=== PATIENT | male | born 1975 | race Caucasian/White ===

== ENCOUNTER 2021-11-30 14:08 | Outpatient (CLI) | payer BC, SELFPAY ==
--- NOTE | ~2021-11-30 | XR_ITS ---
EXAMINATION: XR chest 2V DATE: 11/30/2021 14:31 INDICATION: Cough, unspecified TECHNIQUE: PA and lateral views of the chest are obtained. COMPARISON: 04/13/2017 FINDINGS: There are minimal airspace opacities of the left lung base. There is no pleural effusion or pneumothorax. The cardiomediastinal silhouette is normal. There is moderate thoracic spondylosis. IMPRESSION: 1. Left basilar airspace opacities, consistent with atelectasis versus pneumonia. Reviewed, dictated and finalized at location B. REPA[employer] [employer]ENCH IMPRESSION: 1. Left basilar airspace opacities, consistent with atelectasis versus pneumoni a.
== END 2021-11-30 14:09 | disposition home or self-care (01) ==
LOC: ANHIMG 14:19
PROVIDERS: PCP Family Medicine; Visit Provider Family Medicine
DX: R05.3 Chronic cough (principal)
CPT/HCPCS: 71046

== ENCOUNTER 2023-03-17 08:41 | Outpatient (CLI) | payer BC, SELFPAY ==
[2023-03-17 18:36] LABS: Basophils Percent Auto 0.5 % (0.2-1.2); Eosinophils Absolute Auto 0.1 K/mm3 (0-0.3); Eosinophils Percent Auto 1.6 % (0-4.4); Hematocrit 44.6 % (42.0-52.0); Hemoglobin 14.6 g/dL (14.0-18.0); Immature Granulocyte Absolute 0.03 K/mm3 (0.00-0.031); Immature Granulocyte Percent A 0.5 % (0-0.5); Lymphocytes Absolute Auto 1.54 K/mm3 (0.9-3.2); Lymphocytes Percent Auto 24.8 % (18.3-44.2); Mean Corpuscular HGB Conc 32.7 g/dl (32-36); Mean Corpuscular Hemoglobin 27.5 pg (26-34); Mean Platelet Volume 9.2 fl (7.4-10.4); Monocytes Absolute Auto 0.6 K/mm3 (0.1-0.6); Monocytes Percent Auto 9.8 % (2.6-8.5); Neutrophils Absolute Auto 3.9 K/mm3 (1.3-6.7); Neutrophils Percent Auto 62.8 % (45.5-73.1); Platelet Count Result 227 k/mm3 (150-375); Red Blood Count 5.31 M/mm3 (4.6-6.20); Red Cell Distribution Width 13.5 % (11.5-14.5); White Blood Count 6.2 K/mm3 (4.5-10.0)
[2023-03-17 18:39] LABS: Alanine Aminotransferase 31 U/L (6-50); Albumin Level 4.4 g/dL (3.5-5.1); Alkaline Phosphatase 99 U/L (38-126); Anion Gap 7 mmol/L (8-16); Aspartate Amino Transferase 33 U/L (17-59); Blood Urea Nitrogen 15 mg/dL (9-20); Calcium 8.8 mg/dL (8.4-10.2); Carbon Dioxide 27 mmol/L (22-30); Chloride 106 mmol/L (98-107); Cholesterol 200 mg/dL (0-200); Estimated Glomerular Filt Rate > 60; Glucose 88 mg/dL (65-110); HDL Direct 37 mg/dL; Sodium 140 mmol/L (137-145); Triglycerides 125 mg/dL (<150)
[2023-03-17 18:45] LABS: LDL Cholesterol Direct 137 mg/dL
[2023-03-17 18:55] LABS: Vitamin D 25 Hydroxy 33.6 ng/mL
[2023-03-17 19:08] LABS: Hemoglobin A1C 5.5 % (<5.7); Prostate Specific Antigen 0.6 ng/mL (< OR = 4.0)
[2023-03-23 18:59] LABS: Testosterone Free 29.2 pg/mL (35.0-155.0); Testosterone Total 281 ng/dL (250-1100)
== END 2023-03-17 08:42 | disposition home or self-care (01) ==
LOC: ANHGOSHLAB 08:44
PROVIDERS: PCP Family Medicine; Visit Provider Nurse Practitioner Family
DX: Z00.00 Encounter for general adult medical examination without abnormal findings (principal); Z13.21 Encounter for screening for nutritional disorder; I10 Essential (primary) hypertension; R53.83 Other fatigue; Z13.29 Encounter for screening for other suspected endocrine disorder; Z13.220 Encounter for screening for lipoid disorders; Z13.1 Encounter for screening for diabetes mellitus; Z12.5 Encounter for screening for malignant neoplasm of prostate
CPT/HCPCS: 36415; 80053; 80061; 82306; 83036; 84153; 84402; 84403; 84443; 85025; G0103

== ENCOUNTER 2024-01-12 08:57 | Outpatient (CLI) | payer BC, SELFPAY ==
[2024-01-12 19:37] LABS: Alanine Aminotransferase 31 U/L (6-50); Albumin Level 4.4 g/dL (3.5-5.1); Alkaline Phosphatase 84 U/L (38-126); Anion Gap 5 mmol/L (4-12); Aspartate Amino Transferase 40 U/L (17-59); Bilirubin,Total 0.9 mg/dL (0.2-1.3); Blood Urea Nitrogen 12 mg/dL (9-20); Calcium 9.1 mg/dL (8.4-10.2); Carbon Dioxide 29 mmol/L (22-30); Chloride 106 mmol/L (98-107); Cholesterol 185 mg/dL (0-200); Estimated Glomerular Filt Rate > 60; Glucose 92 mg/dL (65-110); HDL Direct 37 mg/dL; Potassium 4.8 mmol/L (3.4-5.0); Sodium 140 mmol/L (137-145); Triglycerides 101 mg/dL (<150)
[2024-01-12 19:42] LABS: Hemoglobin A1C 5.3 % (<5.7)
[2024-01-12 19:48] LABS: Basophils Absolute Auto 0.1 K/mm3 (0.0-0.1); Basophils Percent Auto 0.7 % (0.2-1.2); Eosinophils Absolute Auto 0.1 K/mm3 (0-0.3); Eosinophils Percent Auto 1.2 % (0-4.4); Hematocrit 46.1 % (42.0-52.0); Hemoglobin 14.7 g/dL (14.0-18.0); Immature Granulocyte Absolute 0.04 K/mm3 (0.00-0.031); Immature Granulocyte Percent A 0.5 % (0-0.5); Lymphocytes Absolute Auto 2.46 K/mm3 (0.9-3.2); Lymphocytes Percent Auto 33.6 % (18.3-44.2); Mean Corpuscular HGB Conc 31.9 g/dl (32-36); Mean Corpuscular Hemoglobin 27.3 pg (26-34); Mean Corpuscular Volume 85.5 fl (80-100); Mean Platelet Volume 9.1 fl (7.4-10.4); Monocytes Absolute Auto 0.8 K/mm3 (0.1-0.6); Monocytes Percent Auto 10.2 % (2.6-8.5); Neutrophils Absolute Auto 3.9 K/mm3 (1.3-6.7); Neutrophils Percent Auto 53.8 % (45.5-73.1); Platelet Count Result 251 k/mm3 (150-375); Red Blood Count 5.39 M/mm3 (4.6-6.20); White Blood Count 7.3 K/mm3 (4.5-10.0)
[2024-01-12 19:50] LABS: LDL Cholesterol Direct 138 mg/dL
[2024-01-17 14:02] LABS: Testosterone Free 65 pg/mL (35.0-155.0); Testosterone Total 431 ng/dL (250-1100)
== END 2024-01-12 08:58 | disposition home or self-care (01) ==
LOC: ANHGOSHLAB 08:58
PROVIDERS: PCP Family Medicine; Visit Provider Nurse Practitioner Family
DX: Z00.00 Encounter for general adult medical examination without abnormal findings (principal); F32.9 Major depressive disorder, single episode, unspecified; I10 Essential (primary) hypertension; R73.03 Prediabetes; E29.1 Testicular hypofunction; H91.92 Unspecified hearing loss, left ear; Z13.29 Encounter for screening for other suspected endocrine disorder
CPT/HCPCS: 36415; 80053; 80061; 83036; 84402; 84403; 84443; 85025

== ENCOUNTER 2024-05-10 09:43 | Outpatient (CLI) | payer BC, SELFPAY ==
[2024-05-10 19:03] LABS: Vitamin D 25 Hydroxy 26.3 ng/mL
[2024-05-10 19:09] LABS: Prostate Specific Antigen 0.8 ng/mL (< OR = 4.0)
== END 2024-05-10 09:44 | disposition home or self-care (01) ==
PROVIDERS: PCP Family Medicine; Visit Provider Student in an Organized Health Care Education/Training Program
DX: E55.9 Vitamin D deficiency, unspecified (principal); Z12.5 Encounter for screening for malignant neoplasm of prostate
CPT/HCPCS: 36415; 82306; 84153; G0103

== ENCOUNTER 2024-06-19 11:08 | Emergency (ER) | payer BC, SELFPAY ==
--- NOTE | ~2024-06-19 | CT_ITS ---
CT lumbar spine wo con Ordering provider: Oly Santillan PA-C History: 49 years Male with . radiculopathy, include SI joint please . Comparison: None. Technique: CT lumbar spine without contrast. Automated exposure control and iterative reconstruction technique were employed. The dose-length product was 1565.37 mGy-cm. FINDINGS: VERTEBRAE: Normal height and alignment. No subluxation or visible acute fracture. Small sclerotic les ion in the left iliac bone most likely a bone island. Follow-up advised. DISC SPACES: Well maintained. Disc spacer at the level of L4-L5 is noted. Right and left facet joint disease at the level of L4-L5. T12-L1: No stenosis. L1-L2: No stenosis. L2-L3: Mild spinal canal stenosis secondary to broad based disc bulge, facet arthropathy, and ligame ntum flavum hypertrophy. Bilateral facet joint disease. L3-L4: Mild spinal canal stenosis secondary to broad based disc bulge, facet arthropathy, and ligamen shabbir flavum hypertrophy. Bilateral facet joint disease. L4-L5: Disc spacer. Bilateral facet joint disease. L5-S1: Diffuse disc bulge. narrowing of the foramina with nerve root compression. PARASPINOUS SOFT TISSUES: Mild atheromatous disease of the abdominal aorta. Left adrenal adenoma. IMPRESSION: No acute osseous abnormality. Multilevel degenerative disc changes with variable degrees of spinal canal stenosis and intervertebra l foraminal narrowing. Reviewed, dictated and finalized at location A. IMPRESSION: No acute osseous abnormality. Multilevel degenerative disc changes with variable degrees of spinal canal sten osis and intervertebral foraminal narrowing.
[2024-06-19 11:11] VITALS: BP 174/100; PULSE 83; RESP 16; TEMP 36.4; O2SAT 99
--- NOTE | 2024-06-19 11:44 | ED.EXTPRO ---
HPI - Extremity Problem General Chief complaint: Extremity Problem,Nontraumatic Stated complaint: R. leg pain. able to ambulate Time Seen by Provider: 06/19/24 11:26 History of Present Illness HPI Narrative: 49-year-old male with history of obesity, hypertension, dyslipidemia and SHE presents to the ED for right leg pain for about a week. Patient states at the onset of symptoms he was having a soreness in the anterior aspect of his thigh. States over the past couple of days the pain has significantly worsened and now radiates from his groin down to the middle of his tibia. He states the pain is worse when he stands and moves and better when he is resting. He is also reporting an ache and is lower right back. He describes the pain as a soreness, crushing, numbness and tingling . He denies injury or trauma, saddle anesthesia, bowel or bladder incontinence, urinary retention. Denies fever, IV drug use, history of cancer, unintentional weight loss. denies lower extremity edema or history of VTE. Patient also reports a history of L4-L5 fusion in 2013 by a ortho spine surgeon in [place]. He has not had imaging of his back since. Related Data Allergies Allergy/AdvReac Type Severity Reaction Status Date / Time No Known Allergies Allergy Unknown Verified 06/19/24 11:40 Review of Systems Review of Systems: All systems reviewed & are unremarkable except as noted in HPI and below PMFSH Past Medical History Medical History Benign positional vertigo Decreased hearing of left ear Depression Dyslipidemia Essential (primary) hypertension SHE (obstructive sleep apnea) Surgical History Surgical History History of back surgery 2013 History of left knee surgery 02/2019 Family History Family History Father Family history of type 2 diabetes mellitus Other Hypertension Social History Social History Smoking status: Former smoker Second hand tobacco smoke exposure: No Smoking end date: 09/25/04 Alcohol intake: never Substance use: never Substance use type: does not use Lack of Transportation: No Lack of Food: Never True Current Housing: I Have Housing Concerned About Future Housing: No Difficulty Paying Gas/Electric Bills: No Difficulty Paying for Meds: No Currently Unemployed: No Education: High School Diploma/GED Difficulty w/ Childcare or Family Care: No Living arrangements: with family Occupation/Education: occupation Gender identity (if verbalized by the patient): Male Agree to blood products: Yes Exam Narrative: GENERAL: Well-appearing, well-nourished, and in no acute distress. HEAD: Normocephalic, atraumatic. EYES: PERRLA and EOMI. ENT: Nares clear, no rhinorrhea or epistaxis. Mucous membranes moist. NECK: Supple. BACK: Very minimal lumbar spinous tenderness without crepitus, step-offs or deformities. Tenderness over the right SI joint without overlying skin changes. Minimal tenderness over the right piriformis. Positive right straight leg raise. CHEST: Clear to auscultation. No respiratory distress. HEART: Regular rate and rhythm. No murmur heard. Normal peripheral pulses. ABDOMEN: Soft, nontender, nondistended, normal active bowel sounds. EXTREMITIES: No tenderness to palpation along the right lower extremity, full range of motion of hip, knee and ankle without pain. Strength 5/5 throughout. No edema. No calf tenderness, negative Homans sign. No overlying skin changes. DP pulse 2 +. Sensation intact. No saddle anesthesia. SKIN: Warm, dry, no rash. NEURO: No focal deficits. Alert and oriented x3 Course Vital Signs Vital signs: Vital Signs Temperature 97.6 F 06/19/24 11:11 Pulse Rate 83 06/19/24 11:11 Respiratory Rat
[2024-06-19] MEDS: KETOROLAC 30 MG/ML VIAL (*BKC) IM (11:59)
[2024-06-19] MEDS: LIDOCAINE 5% PATCH 1 PATCH TRANSDERM (12:00)
[2024-06-19] MEDS: CYCLOBENZAPRINE HCL 10 MG TABLET PO (12:00)
[2024-06-19 13:12] VITALS: BP 138/89; PULSE 79; RESP 18; TEMP 36.6; O2SAT 99
== END 2024-06-19 13:15 | disposition home or self-care (01) ==
PROVIDERS: Emergency Provider Physician Assistant; PCP Family Medicine
DX: M54.16 Radiculopathy, lumbar region (principal); I10 Essential (primary) hypertension; E78.5 Hyperlipidemia, unspecified; E66.9 Obesity, unspecified; Z68.41 Body mass index [BMI] 40.0-44.9, adult; G47.33 Obstructive sleep apnea (adult) (pediatric); Z98.1 Arthrodesis status; Z87.891 Personal history of nicotine dependence
CPT/HCPCS: 72131; 96372; 99284; A9270; J1885

== ENCOUNTER 2024-07-26 13:30 | Outpatient (RCR) | payer BC, SELFPAY ==
--- NOTE | 2024-07-10 11:59 | PTOPEVAL1 ---
Assessment and note entered by Samantha Bautista, PT Evaluation Information Assessment Status Evaluation Diagnosis M54.16 ICD-10 Condition Codes (PT) M54.16,Pain in right hip M25.551,M25.561, Difficulty Walking R26.2,R26.9,Weakness R53.1 Onset a couple weeks ago Subjective Information Pt reports waking up one day feeling pain to R lower back and goes to the groin area down to below the knee; excruciating that he is not able to walk for a few days, felt R knee tingling, numbness, burning sensation to medial lower leg. Used a walker for a week due to increased pain and difficulty moving around. Work includes crawling in tight spaces, climbing ladders and standing for an hour, or sitting for an hour when driving. Bending over seems to relieve the pressure while standing straight or sitting in one position for a prolonged period of time increases the pain. Took oral steroids and has finished taking it on 06/26. He states that the steroids definitely made a huge difference with the pain levels but continue to feel some discomfort and weakness to R knee and lower leg. Assessment PT Clinical Summary Pt is a 49 yo male who presents to therapy with increased pain to R lower back that radiates to groin area, R knee and medial R leg. Demos decreased ROM to lumbar and hip joints, trunk and BLE weakness, positive 90/90 hamstrings test for muscle tightness, postural and gait impairments impacting his ability to perform functional mobility and ambulation at this time. He may benefit from skilled PT to manage pain, improve joint mobility, improve strength and stability, address deficits in posture and gait to perform functional mobility without discomfort, reduce risks for further injury and improve QOL. Plan of Care Interventions Check Out for Orthotic/Pr,Electrical Stimulation, Gait Training,Hot Pack/Cold Pack,Manual Therapy, Neuro Re-education,Patient/Caregiver Education, Therapeutic Activities,Therapeutic Exercise, Ultrasound,Other Other Interventions IASTM, Taping PT Services Indicated Yes Treatment Frequency and 1-2x/wk x 12 visits Duration These treatments will address the objective and functional deficits as defined above. The patient will be advanced safely and appropriately in order for the patient to progress towards his/her prior level of function. Additional exercises will be introduced and as well as a comprehensive home exercise program upon discharge, if needed, ?to ensure carryover of functional gains achieved in the clinic. This treatment plan has been reviewed and agreement upon by the patient.
--- NOTE | 2024-08-19 13:45 | PTOPDC ---
Assessment and note entered by Denisse Uribe, PT Evaluation Information Assessment Status Discharge - Pt Not Present Diagnosis M54.16 ICD-10 Condition Codes (PT) M54.16,Pain in right hip M25.551,M25.561, Difficulty Walking R26.2,R26.9,Weakness R53.1 Onset a couple weeks ago Subjective Information Pt reports waking up one day feeling pain to R lower back and goes to the groin area down to below the knee; excruciating that he is not able to walk for a few days, felt R knee tingling, numbness, burning sensation to medial lower leg. Used a walker for a week due to increased pain and difficulty moving around. Work includes crawling in tight spaces, climbing ladders and standing for an hour, or sitting for an hour when driving. Bending over seems to relieve the pressure while standing straight or sitting in one position for a prolonged period of time increases the pain. Took oral steroids and has finished taking it on 06/26. He states that the steroids definitely made a huge difference with the pain levels but continue to feel some discomfort and weakness to R knee and lower leg. Assessment PT Clinical Summary Pt attended evaluation and three visits. It has been over three weeks since last visit. After multiple attempts to contact without correspondence, we are discharging patient due to nonattendance. Plan of Care PT Services Indicated No
== END 2024-08-19 13:50 | disposition home or self-care (01) ==
LOC: ANHHIPT 13:30
PROVIDERS: PCP Family Medicine; Visit Provider Family Medicine
DX: M54.16 Radiculopathy, lumbar region (principal)
CPT/HCPCS: 97014; 97035; 97110; 97140; 97161; G0283

== ENCOUNTER 2024-08-29 00:38 | Day surgery (SDC) | payer BC, SELFPAY ==
[2024-08-09 14:49] VITALS: BMI 40.7
--- NOTE | 2024-08-28 16:14 | P.PNAN_ITS ---
Anes - Eval Pre Procedure Procedure: Operation Date: 08/29/24 08:00 Proposed Procedures p Screening Colonoscopy - Shlomo Aguilar DO Date/Time: 08/28/24 16:14 Pre Op Diagnosis: Screening for malignant neoplasm of colon Patient Data Age: 49 Gender: M Height: 1.83 m Weight: 136.36 kg Allergies Allergy/AdvReac Type Severity Reaction Status Date / Time No Known Allergies Allergy Unknown Verified 08/09/24 14:50 Home Medications Medication Instructions Recorded Confirmed Type olmesartan 20 1 tablet PO DAILY #90 tabs 03/08/24 08/09/24 Rx mg-hydrochlorothiazide 12.5 mg tablet syringe with needle, safety 3 mL #10 ea 05/28/24 06/20/24 Rx 23 gauge x 1 (Monoject Safety Syringes) testosterone cypionate 100 mg/mL 100 mg IM .[id number] #6 vials 06/11/24 08/09/24 Rx intramuscular oil (Depo-Testosterone) ibuprofen 800 mg tablet 800 mg PO TID PRN pain #20 tabs 06/19/24 08/09/24 Rx cyclobenzaprine 10 mg tablet 10 mg PO TID PRN muscle spasm #60 07/26/24 08/09/24 Rx tabs tramadol 50 mg tablet 50 mg PO Q8H PRN pain #30 tabs 07/26/24 08/09/24 Rx amlodipine 10 mg tablet 10 mg PO DAILY #90 tabs 08/15/24 Rx sertraline 50 mg tablet 50 mg PO DAILY #90 tabs 08/15/24 Rx benzonatate 100 mg capsule 100 mg PO TID PRN cough #30 caps 08/21/24 Rx tirzepatide (weight loss) 7.5 7.5 mg (0.5 mL) subcut WEEKLY #2 mL 08/21/24 Rx mg/0.5 mL subcutaneous pen injector Patient hx anesthesia problems: none Family hx anesthesia problems: none Results Review: All pre-operative results and documents have been reviewed as part of the pre- operative evaluation. [facility] Past Medical History Medical History Benign positional vertigo Decreased hearing of left ear Depression Dyslipidemia Essential (primary) hypertension SHE (obstructive sleep apnea) Surgical History Surgical History History of back surgery 2013 History of left knee surgery 02/2019 Family History Family History Father Family history of type 2 diabetes mellitus Other Hypertension Social History Social History Years smoked: 10 Smoking status: Former smoker Tobacco type: cigarettes Second hand tobacco smoke exposure: No Smoking end date: 09/25/08 Alcohol intake: never Substance use: never Substance use type: does not use Lack of Transportation: No Lack of Food: Never True Current Housing: I Have Housing Concerned About Future Housing: No Difficulty Paying Gas/Electric Bills: No Difficulty Paying for Meds: No Currently Unemployed: No Education: High School Diploma/GED Difficulty w/ Childcare or Family Care: No Living arrangements: with family Occupation/Education: occupation Gender identity (if verbalized by the patient): Male Spiritual care concerns: No Agree to blood products: Yes Exam Day of Procedure 08/28/24 16:14 Patient weight: morbidly obese
[2024-08-29 06:56] VITALS: BP 144/91; PULSE 79; RESP 18; TEMP 36.6; O2SAT 99
[2024-08-29] MEDS: LACTATED RINGERS 1,000 ML 150 ML IV CONT (07:14)
--- NOTE | 2024-08-29 07:23 | P.PNAN_ITS ---
Anes - Eval Final PreProcedure Day of Procedure 08/29/24 07:23 Patient weight: morbidly obese Heart: regular rate and rhythm Lungs: clear to auscultation Airway: Mallampati scale class II Neurological: alert and oriented Last oral intake: >/= 8 hours ASA classification: III Emergent: no Anesthetic plan: proceed Anesthesia type and monitoring: general GIVS and standard monitoring Results Review: All pre-operative results and documents have been reviewed as part of the pre- operative evaluation. Informed Consent: The patient's anesthetic plan and its attendant risks and benefits were discussed with the patient/family/POA. Questions were solicited and answers provided to the satisfaction of the patient/family/POA.
--- NOTE | 2024-08-29 07:54 | P.HP_ITS ---
H&P: HPI History of Present Illness Date/Time: 08/29/24 07:54 Chief Complaint: Screening for colorectal cancer Narrative: this is a 49-year-old man who presents for colonoscopy. He has never had a colonoscopy before. He has the family history of colon cancer in a grandfather but no first-degree relatives. He denies any hematochezia or melena. Review of Systems Review of Systems: All systems reviewed & are unremarkable except as noted in HPI and below Constitutional: Constitutional: Denies chills, Denies fever(s), Denies headache(s) and Denies weight loss Eyes: Eyes: Denies change in vision ENT: Denies dizziness, Denies headache(s), Denies neck mass and Denies throat swelling Cardiovascular: Cardiovascular: Denies chest pain, Denies lightheadedness and Denies dyspnea Respiratory: Respiratory: Denies cough, Denies dyspnea and Denies wheezing Gastrointestinal: Gastrointestinal: Denies abdominal pain, Denies change in bowel habits, Denies nausea and Denies vomiting Genitourinary: Genitourinary: Denies hematuria and Denies dysuria Musculoskeletal: Musculoskeletal: Reports as per HPI Integumentary/Breasts: Skin/Breast: Reports as per HPI Neurologic: Denies dizziness and Denies headache(s) Allergic/Immunologic: Allergic/Immunologic: Denies throat swelling and Denies wheezing PMFSH Past Medical History Medical History Benign positional vertigo Decreased hearing of left ear Depression Dyslipidemia Essential (primary) hypertension SHE (obstructive sleep apnea) Surgical History Surgical History History of back surgery 2014 History of left knee surgery 02/2019 Family History Family History Father Family history of type 2 diabetes mellitus Other Hypertension Social History Social History Years smoked: 10 Smoking status: Former smoker Tobacco type: cigarettes Second hand tobacco smoke exposure: No Smoking end date: 09/25/08 Alcohol intake: never Substance use: never Substance use type: does not use Lack of Transportation: No Lack of Food: Never True Current Housing: I Have Housing Concerned About Future Housing: No Difficulty Paying Gas/Electric Bills: No Difficulty Paying for Meds: No Currently Unemployed: No Education: High School Diploma/GED Difficulty w/ Childcare or Family Care: No Living arrangements: with family Occupation/Education: occupation Gender identity (if verbalized by the patient): Male Spiritual care concerns: No Agree to blood products: Yes Meds Home Medications and Allergies Home Medications Medication Instructions Recorded Confirmed Type olmesartan 20 1 tablet PO DAILY #90 tabs 03/08/24 08/09/24 Rx mg-hydrochlorothiazide 12.5 mg tablet syringe with needle, safety 3 mL #10 ea 05/28/24 06/20/24 Rx 23 gauge x 1 (Monoject Safety Syringes) testosterone cypionate 100 mg/mL 100 mg IM .[id number] #6 vials 06/11/24 08/29/24 Rx intramuscular oil (Depo-Testosterone) ibuprofen 800 mg tablet 800 mg PO TID PRN pain #20 tabs 06/19/24 08/29/24 Rx amlodipine 10 mg tablet 10 mg PO DAILY #90 tabs 08/15/24 08/29/24 Rx sertraline 50 mg tablet 50 mg PO DAILY #90 tabs 08/15/24 08/29/24 Rx tirzepatide (weight loss) 7.5 7.5 mg (0.5 mL) subcut WEEKLY #2 mL 08/21/24 1 10/30/23 Rx mg/0.5 mL subcutaneous pen injector Allergies Allergy/AdvReac Type Severity Reaction Status Date / Time No Known Allergies Allergy Unknown Verified 08/29/24 06:49 Vital Signs Vital Signs - 24 hr 08/29/24 06:56 Temperature 97.8 F Pulse Rate 79 Respiratory Rate 18 Blood Pressure 144/91 H Pulse Oximetry 99 Oxygen Delivery Room Air Exam Const: General: no acute distress and alert Orientation/consciousness: patient oriented x3 HENMT: Head: normocephalic and atraumatic Ears: hearing grossly normal bilaterally Face/Nose/Sinus: Normal nares present Mouth: Yes Normal oral and palatal mucosa present Eyes: Periorbital: periorbital findings normal Sclera: sclerae normal EOM: EOMs intact bilaterally Neck: Neck: normal visual inspection, no lymphadenopathy and trachea midline Chest: Chest palpation & inspection: normal inspection of the chest Resp: Effort & Inspection: normal respiratory effort Auscultation: clear to auscultation bilaterally Cardio: Jugular venous distension: no JVD Rate: regular rate Rhythm: regular rhythm Heart sounds: S1 normal heart sound present and S2 normal heart sound present Peripheral pulses: Peripheral pulses 2+ throughout GI: Inspection: normal to inspection GI Palp: Yes Soft to palpation, No Tenderness to palpation present (GI), No Guarding due to palpation present (GI) and No Rebound tenderness present Percussion: Yes normal to percussion Auscultation: normal bowel sounds : General: Yes no CVA tenderness Back/Spine/Pelvis: Back: no CVA tenderness Neuro: General: patient oriented x3, no focal motor deficits and CN's II-XI intact bilaterally Cognition (Neuro): normal cognition Speech: normal speech Motor exam (neuro): 5/5 motor strength present throughout Extrem: General: capillary refill normal and no clubbing, cyanosis or edema Assessment and Plan Assessment and plan (1) Screening for colorectal cancer: Code(s): Z12.11 - Encounter for screening for malignant neoplasm of colon; Z12.12 - Encounter for screening for malignant neoplasm of rectum Status: Acute Assessment and Plan: I have recommended colonoscopy. I have discussed the procedure, risks, benefits, and alternatives. Questions were answered. Patient is agreeable to proceed.
[2024-08-29 08:34] VITALS: BP 129/85; PULSE 72; RESP 20; O2SAT 100
[2024-08-29 08:44] VITALS: BP 113/75; PULSE 66; RESP 22; O2SAT 99
[2024-08-29 08:54] VITALS: BP 129/84; PULSE 69; RESP 17; O2SAT 99
== END 2024-08-29 09:06 | disposition home or self-care (01) ==
PROVIDERS: PCP Family Medicine; Visit Provider Surgery
PROC: 0DJD8ZZ Inspection of Lower Intestinal Tract, Via Natural or Artificial Opening Endoscopic (ICD-10-PCS; CPT 45378; principal; 2024-08-29 08:00)
DX: Z12.11 Encounter for screening for malignant neoplasm of colon (principal); D12.2 Benign neoplasm of ascending colon; D12.4 Benign neoplasm of descending colon; D12.8 Benign neoplasm of rectum; K62.1 Rectal polyp; I10 Essential (primary) hypertension; E78.5 Hyperlipidemia, unspecified; G47.33 Obstructive sleep apnea (adult) (pediatric); F32.A Depression, unspecified; Z87.891 Personal history of nicotine dependence; E66.01 Morbid (severe) obesity due to excess calories; Z68.41 Body mass index [BMI] 40.0-44.9, adult; Z79.85 Long-term (current) use of injectable non-insulin antidiabetic drugs; Z79.890 Hormone replacement therapy
CPT/HCPCS: 45380; 45385; 88305; J2003; J2704; J7120

== ENCOUNTER 2024-09-05 08:16 | Outpatient (CLI) | payer BC, SELFPAY ==
[2024-09-11 06:08] LABS: Metanephrine, Free 28 pg/mL (<=57); Normetanephrine, Free 84 pg/mL (<=148); Total, Free (MN + NMN) 112 pg/mL (<=205)
[2024-09-15 21:58] LABS: Renin 3.15 ng/mL/h (0.25-5.82)
== END 2024-09-05 08:17 | disposition home or self-care (01) ==
LOC: ANHGOSHLAB 08:18
PROVIDERS: PCP Family Medicine; Visit Provider Urology
DX: E27.8 Other specified disorders of adrenal gland (principal)
CPT/HCPCS: 36415; 82533; 83835; 84244

== ENCOUNTER 2024-11-15 13:31 | Outpatient (CLI) | payer BC, SELFPAY ==
--- OUTSIDE RECORDS SUMMARY | 2024-11-15 13:39 | XMS_ITS | Referral Summary ---
Author Organization [facility] Address [address] [place] [address] Care Team Providers Care Command And Control Name Role Phone Unavailable Primary Care Provider Unavailabl e Source Comments [facility],non-owned Affiliates and Associated Physician Practices is amultiple site organization consisting of ambulatory clinics and hospital sitesin [place], [place], [place] and [place]. This disclosure is being madepursuant to the Care Everywhere program and may not contain all information available regarding this patient. Last updated 18.[facility] payleven Social History Tobacco Use Types Packs/Day Years Used Date Smoking Tobacco: Never Assessed Sex and Gender Information Value Date Recorded Sex Assigned at Not on file Gender Identity Not on file Sexual Orientation Not on file Plan of Treatment Not on file Administered Medications
--- OUTSIDE RECORDS SUMMARY | 2024-11-15 13:39 | XMS_ITS | Patient Health Summary ---
Author Organization [facility] Address [address] [place] [address] Care Team Providers Care Cement Breaker Name Role Phone Unavailable Primary Care Provider Unavailabl e Note from [facility],non-owned Affiliates and Associated Physician Practices is amultiple site organization consisting of ambulatory clinics and hospital sitesin [place], [place], [place] and [place]. This disclosure is being madepursuant to the Care Everywhere program and may not contain all information available regarding this patient. Last updated 18.[facility] Social History Tobacco Use Types Packs/Day Years Used Date Smoking Tobacco: Never Assessed Sex and Gender Information Value Date Recorded Sex Assigned at Not on file Gender Identity Not on file Sexual Orientation Not on file Procedures * SKIN TEST PPD - POINT OF CARE(Performed 12/09/2020) Performed for Screening for tuberculosis Results * SKIN TEST PPD - POINT OF CARE (12/09/2020 2:10 PM CDT) PPD negative [facility] Other MISCELLANEOUS SAMPLE S / Unknown 12/09/2020 2:10 PM CDT Manoj Nagel MATERIALS AND CORROSION ENGINEER-ECHOCARDIOGRAPHER LAB - POINT OF CARE ORDERABLES [facility] [address] [place] [address], [facility] [phone]
--- OUTSIDE RECORDS SUMMARY | 2024-11-15 13:39 | XMS_ITS | Clinical Summary ---
Author Organization [facility] Address [address] [place] [address] Care Team Providers Care Final Inspector Balance Wheel Name Role Phone Unavailable Primary Care Provider Unavailabl e Source Comments [facility] [employer],non-owned Affiliates and Associated Physician Practices is amultiple site organization consisting of ambulatory clinics and hospital sitesin [place], [place], [place] and [place]. This disclosure is being madepursuant to the Care Everywhere program and may not contain all information available regarding this patient. Last updated 18.[facility] [employer] Social History Tobacco Use Types Packs/Day Years Used Date Smoking Tobacco: Never Assessed Sex and Gender Information Value Date Recorded Sex Assigned at Not on file Gender Identity Not on file Sexual Orientation Not on file Plan of Treatment Health Maintenance Due Date Last Done Comments COLOGUARD (AGES 45-75) - COL ON CA SCREENING 1975 COLON MONITORING 1975 COLONOSCOPY - COLON CA SCREENING 1975 CT COLONOGRAPHY - COLON CA SCREENING 1975 Colorectal Cancer Screening 1975 FIT - COLON CA SCREENING 1975 FLEX SIG - COLON CA SCREENING 1975 LIPID TESTING 1975 HIV SCREENING 1990 HEPATITIS C SCREENING 02/28/1993 DTAP/TDAP/TD VACCINES (1 - Tdap) 1994 HEPATITIS B VACCINE (1 of 3 - 19+ 3-dose series) 1994 COVID-19 VACCINE ( - 2023-2 5 season) 2024 INFLUENZA VACCINE (#1) 2024 DEPRESSION SCREENING 09/25/2024 ZOSTER VACCINE (1 of 2) 2025 HIB VACCINE Aged Out No longer eligi ble based on patient's age to complete this topic HPV VACCINE Aged Out No longer eligi ble based on patient's age to complete this topic MENINGOCOCCAL (Group B) VACCINE Aged Out No longer eligible based on patient's age to complete this topic MENINGOCOCCAL VACCINE Aged Out No shekhar nic eligible based on patient's age to complete this topic PNEUMOCOCCAL VACCINE Aged Out No long er eligible based on patient's age to complete this topic
[2024-11-15 14:54] LABS: Basophils Percent Auto 0.4 % (0.2-1.2); Eosinophils Absolute Auto 0.3 K/mm3 (0-0.3); Eosinophils Percent Auto 3.7 % (0-4.4); Hematocrit 44.1 % (42.0-52.0); Hemoglobin 14.7 g/dL (14.0-18.0); Immature Granulocyte Absolute 0.02 K/mm3 (0.00-0.031); Immature Granulocyte Percent A 0.3 % (0-0.5); Lymphocytes Absolute Auto 2.38 K/mm3 (0.9-3.2); Lymphocytes Percent Auto 31.8 % (18.3-44.2); Mean Corpuscular HGB Conc 33.3 g/dl (32-36); Mean Corpuscular Hemoglobin 27.4 pg (26-34); Mean Corpuscular Volume 82.1 fl (80-100); Mean Platelet Volume 8.9 fl (7.4-10.4); Monocytes Absolute Auto 0.8 K/mm3 (0.1-0.6); Monocytes Percent Auto 10.8 % (2.6-8.5); Platelet Count Result 286 k/mm3 (150-375); Red Blood Count 5.37 M/mm3 (4.6-6.20); Red Cell Distribution Width 13.2 % (11.5-14.5); White Blood Count 7.5 K/mm3 (4.5-10.0)
[2024-11-20 08:33] LABS: Testosterone Total 486 ng/dL (250-1100)
== END 2024-11-15 13:32 | disposition home or self-care (01) ==
LOC: ANHGOSHLAB 13:32
PROVIDERS: PCP Family Medicine; Visit Provider Nurse Practitioner Family
DX: E29.1 Testicular hypofunction (principal); I10 Essential (primary) hypertension
CPT/HCPCS: 36415; 84403; 85025

== ENCOUNTER 2025-05-30 08:19 | Outpatient (CLI) | payer BC, SELFPAY ==
--- OUTSIDE RECORDS SUMMARY | 2025-05-30 08:23 | XMS_ITS | Clinical Summary ---
Author Organization [facility] Address [address] [place] [address] Care Team Providers Care Community Artist Name Role Phone Unavailable Primary Care Provider Unavailabl e Source Comments [facility],non-owned Affiliates and Associated Physician Practices is amultiple site organization consisting of ambulatory clinics and hospital sitesin [place], [place], [place] and [place]. This disclosure is being madepursuant to the Care Everywhere program and may not contain all information available regarding this patient. Last updated 18.[facility] [employer] Social History Tobacco Use Types Packs/Day Years Used Date Smoking Tobacco: Never Assessed Sex and Gender Information Value Date Recorded Sex Assigned at Not on file Legal Sex Male 11:59 AM CDT Gender Identity Not on file Sexual Orientation [...] - 19+ 3-dose series) 1994 COVID-19 VACCINE (1 - 2023-2 5 season) 2024 DEPRESSION SCREENING 09/25/2024 PNEUMOCOCCAL VACCINE 50+ (1 of 1 - PCV) 2025 ZOSTER VACCINE (1 of 2) 2025 INFLUENZA VACCINE (#1) 2025 HIB VACCINE Aged Out No longer eligi ble based on patient's age to complete this topic HPV VACCINE Aged Out No longer eligi ble based on patient's age to complete this topic MENINGOCOCCAL (Group B) VACC INE SHARED DECISION-MAKING Aged Out No longer eligibl e based on patient's age to complete this topic MENINGOCOCCAL GROUPS A/C/Y/W VACCINE Aged Out No longer eligible b ased on patient's age to complete this topic Insurance [employer] SELF PAY NO INSURANCE Member Subscriber Plan / Payer (Ef fective for All Dates) Name:Francisco Newman Member ID:Not on file Relation to Subscriber:Not on file Name:FRANCISCO NEWMAN Subscriber ID:Not on file (Home) Address: [address] [place] [address] Payer ID:Not on file Group ID:Not on file Type:Self Pay Address: [place], [place]
[2025-05-30 12:09] LABS: Hematocrit 41.7 % (42.0-52.0); Hemoglobin 13.7 g/dL (14.0-18.0); Immature Granulocyte Percent A 0.7 % (0-0.5); Lymphocytes Absolute Auto 1.71 K/mm3 (0.9-3.2); Mean Corpuscular HGB Conc 32.9 g/dl (32-36); Mean Corpuscular Hemoglobin 27.2 pg (26-34); Mean Corpuscular Volume 82.7 fl (80-100); Nucleated Red Blood Cells Absolute Auto 0.000 K/mm3 (0.0-0.012); Nucleated Red Blood Cells Perc 0.0 % (0.0-0.2); Platelet Count Result 246 k/mm3 (150-375); Red Blood Count 5.04 M/mm3 (4.6-6.20); White Blood Count 6.1 K/mm3 (4.5-10.0)
[2025-05-30 12:17] LABS: Alanine Aminotransferase 24 U/L (6-50); Albumin Level 4.0 g/dL (3.5-5.1); Alkaline Phosphatase 81 U/L (38-126); Anion Gap 7 mmol/L (4-12); Aspartate Amino Transferase 40 U/L (17-59); Bilirubin,Total 1.1 mg/dL (0.2-1.3); Blood Urea Nitrogen 13 mg/dL (9-20); Calcium 8.8 mg/dL (8.4-10.2); Carbon Dioxide 25 mmol/L (22-30); Chloride 107 mmol/L (98-107); Cholesterol 213 mg/dL (0-200); Estimated Glomerular Filt Rate > 60; Glucose 101 mg/dL (65-110); HDL Direct 32 mg/dL; Potassium 4.0 mmol/L (3.4-5.0); Sodium 139 mmol/L (137-145); Total Protein 7.2 g/dL (6.3-8.2); Triglycerides 91 mg/dL (<150)
[2025-05-30 12:46] LABS: Thyroid Stimulating Hormone Reflex 0.825 uIU/mL (0.465-4.68)
[2025-05-30 12:53] LABS: Prostate Specific Antigen 0.7 ng/mL (< OR = 4.0)
[2025-05-30 13:12] LABS: Vitamin B12 268.0 pg/mL (239-931)
[2025-05-30 13:30] LABS: Hemoglobin A1C 5.4 % (<5.7)
== END 2025-05-30 08:20 | disposition home or self-care (01) ==
LOC: ANHGOSHLAB 08:20
PROVIDERS: PCP Family Medicine; Visit Provider Family Medicine
DX: Z00.00 Encounter for general adult medical examination without abnormal findings (principal); Z12.5 Encounter for screening for malignant neoplasm of prostate; E53.8 Deficiency of other specified B group vitamins; E29.1 Testicular hypofunction; M25.50 Pain in unspecified joint; W57.XXXA Bitten or stung by nonvenomous insect and other nonvenomous arthropods, initial encounter; I10 Essential (primary) hypertension; E55.9 Vitamin D deficiency, unspecified; R73.9 Hyperglycemia, unspecified
CPT/HCPCS: 36415; 80053; 80061; 82306; 82607; 83036; 84153; 84443; 85025; 86618; G0103